=== PATIENT | male | born 1985 | race Caucasian/White ===

== ENCOUNTER 2021-05-09 14:18 | Emergency (ER) | payer BC, SELFPAY ==
[2021-05-09 14:23] VITALS: BP 171/155; PULSE 113; RESP 26; TEMP 36.8; O2SAT 98
[2021-05-09] MEDS: HYDROmorphone HCL INJ (*CRX) 1 MG/ML SYR 0.5 MG IV PUSH (14:44)
[2021-05-09] MEDS: SODIUM CHLORIDE 0.9% IV 1,000 ML 999 ML (14:44)
[2021-05-09] MEDS: ONDANSETRON INJ 4 MG/2 ML VIAL IV PUSH (14:45)
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
--- NOTE | 2021-05-09 15:02 | PC.NURSE ---
ice cold towels applied to upper and lower extremities per EDVictoria Lord. Dr. Lord called [facility] for transfer and towels removed per their request.
[2021-05-09] MEDS: TETANUS,DIPHTHERIA,AC PERTUSSIS ADULT (0.5 ML) BOOSTRIX IM (15:23)
[2021-05-09 15:30] VITALS: BP 147/97; PULSE 86; RESP 19; O2SAT 100
--- NOTE | 2021-05-09 15:34 | PC.NURSE ---
[facility] accepted transfer to [facility] on [address] ETA 10 min Trip # [id number] Per Dr Risa beyer & arnoldo
== END 2021-05-09 15:43 | disposition short-term general hospital (02) ==
PROVIDERS: Emergency Provider Emergency Medicine; PCP Family Medicine
DX: T24.201A Burn of second degree of unspecified site of right lower limb, except ankle and foot, initial encounter (principal); T24.202A Burn of second degree of unspecified site of left lower limb, except ankle and foot, initial encounter; T20.19XA Burn of first degree of multiple sites of head, face, and neck, initial encounter; T22.012A Burn of unspecified degree of left forearm, initial encounter; T22.011A Burn of unspecified degree of right forearm, initial encounter; T31.11 Burns involving 10-19% of body surface with 10-19% third degree burns; Z23 Encounter for immunization; X08.8XXA Exposure to other specified smoke, fire and flames, initial encounter
CPT/HCPCS: 90471; 90715; 96374; 96375; 99285; J1170; J2405; J7030

== ENCOUNTER 2023-01-18 13:20 | Emergency (ER) | payer BC, SELFPAY ==
--- NOTE | 2023-01-18 13:31 | ED.URI ---
HPI - URI/Sore Throat General Chief Complaint: Upper Respiratory Infection Stated Complaint: nasal drainage/congestion Time Seen by Provider: 01/18/23 13:31 Source: patient Mode of arrival: ambulatory Limitations: no limitations History of Present Illness HPI Narrative: Mr. Elaine is a 37-year-old male patient presenting to the clinic today with complaints of nasal drainage and congestion for over 1 week. He reports he has been blowing his nose and having greenish brown nasal drainage with blood. States he has a pressure to the with of his mouth with sinus congestion also reporting some postnasal drip. States he has had a low-grade fever as well as developed over the last 2 days. MD elicited complaint: rhinorrhea and nasal congestion Related Data Home Medications Medication Instructions Recorded Confirmed hydrocodone 10 mg-acetaminophen 1 tablet PO Q8H PRN 07/25/21 10/31/22 325 mg tablet Allergies Allergy/AdvReac Type Severity Reaction Status Date / Time No Known Allergies Allergy Mild Verified 01/18/23 13:47 Review of Systems Review of Systems: Pertinent positives per HPI. Patient denies any fever, chills, rash, headache, visual changes, dizziness, cough, shortness of breath, chest pain, palpitations, nausea, vomiting, diarrhea, constipation, abdominal pain, or any urinary issues. [facility] Past Medical History Medical History ADHD BMI 30.0-30.9,adult BMI 31.0-31.9,adult BMI 32.0-32.9,adult Chronic low back pain with left-sided sciatica COVID-19 (~2020) GERD (gastroesophageal reflux disease) HTN (hypertension) Hypogonadism in male Total testosterone 118 with free testosterone 23.4 on 09/17/2022. Long-term current use of testosterone replacement therapy Lumbago Microscopic hematuria (09/17/22) trace blood on urinalysis 09/17/2022. Mixed hyperlipidemia (09/17/22) total cholesterol 254, triglycerides 204, HDL 31, LDL 185 with ratio of 8.2 on 09/17/2022. Obesity (BMI 30.0-34.9) Seasonal allergic rhinitis Tobacco abuse Wellness examination Surgical History Surgical History Hx of appendectomy Hx of tonsillectomy Family History Family History Mother Heart disease Hypertension Acute myocardial infarction Social History Social History Smoking packs per day: 1 Smoking cigarettes per day: 20.0 Years smoked: 20 Smoking pack-years: 20.00 Smoking status: Current every day smoker Tobacco type: cigarettes Alcohol intake: current Alcohol use details: Rarely Substance use: never Substance use type: does not use Lack of Transportation: No Lack of Food: Never True Current Housing: I Have Housing Concerned About Future Housing: No Difficulty Paying Gas/Electric Bills: No Difficulty Paying for Meds: No Education: Trade/Vocational Certificate Difficulty w/ Childcare or Family Care: No Comments At the time of my signature, I reviewed and agree with the nursing past medical, surgical, social, and family history. There is no relevant family history pertinent to the patient complaint. Exam Narrative: General: Well-developed, well nourished, in no apparent distress Head: Normocephalic, atraumatic Eyes: Pupils equally round and reactive to light bilaterally, EOM intact, sclera and conjunctive clear, no discharge, lids normal Ears: TMs intact and clear, ear canals clear, no drainage, grossly hearing normal. Nose: Nares patent, green nasal discharge, moderate to severe inflammation, maxillary and frontal sinus tenderness. Mouth: Oral pharynx without lesions or masses, good dentition, MMM. Postnasal drip Neck: Supple, trachea midline, no enlargement of anterior or posterior cervical nodes, no thyroid masses or goiter palpable. Car
[2023-01-18 13:45] VITALS: BP 131/78; PULSE 93; RESP 18; TEMP 36.1; O2SAT 100
== END 2023-01-18 13:50 | disposition home or self-care (01) ==
PROVIDERS: Emergency Provider Nurse Practitioner Family; PCP Family Medicine
DX: J01.90 Acute sinusitis, unspecified (principal); F17.210 Nicotine dependence, cigarettes, uncomplicated; K21.9 Gastro-esophageal reflux disease without esophagitis; I10 Essential (primary) hypertension; E78.2 Mixed hyperlipidemia; E66.9 Obesity, unspecified; Z68.32 Body mass index [BMI] 32.0-32.9, adult; F90.9 Attention-deficit hyperactivity disorder, unspecified type
CPT/HCPCS: 99213; G0463

== ENCOUNTER 2025-03-06 15:34 | Emergency (ER) | payer BC, SELFPAY ==
--- NOTE | ~2025-03-06 | XR_ITS ---
EXAM: XR hand RT min 3V DATE: 03/06/2025 15:56 HISTORY: Right hand injury/pain at 4th and 5th MCP joint . COMPARISON: None available. FINDINGS: Normal mineralization. Oblique fracture of the distal aspect of the fifth metacarpal, with 2 mm posterior displacement and 41 degrees anterior angulation. No lytic or blastic lesion. Joint sp aces are maintained. No erosion or periosteal change. Soft tissue swelling over the fracture site. IMPRESSION: Oblique, mildly displaced and moderately angulated distal right fifth metacarpal fracture (boxer's type fracture). Reviewed, dictated and finalized at location K. IMPRESSION: Oblique, mildly displaced and moderately angulated distal right fif th metacarpal fracture (boxer's type fracture).
[2025-03-06 15:43] VITALS: BP 145/93; PULSE 86; RESP 18; TEMP 36.9; O2SAT 99
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
--- OUTSIDE RECORDS SUMMARY | 2025-03-06 17:27 | XMS_ITS | Continuity of Care Document ---
Author Organization [facility] Address [address] [place] [address] Phone Care Team Providers Care Security Systems Manager Name Role Phone Matthieu Gomez MD Unavailable Unavailable Allergies, Adverse Reactions, Alerts Substance Reaction Status Criticality No Known Allergies Active No Inform ation Medications Medication Instructions Dosage Effective Dates (start - stop) Status Comments Naprosyn 500 mg tablet take 1 tablet by oral route 2 times every day with food 500 MG - Active LEVOTHYROXINE SODIUM (unknown strength) Not Available - Active HYDROCODONE-ACETAMIN OPHEN (unknown strength) Not Available - Active Procedures Procedure Date RADEX SPI LUMBOSAC 2/3 VIEWS OFFICE/OUTPATIENT VISIT NEW Advance Directives Directive Yes / No Effective Date File Name No Information Encounters Encounter Description Practice Location Reason(s) For Visit Diagnoses Date Provider Providers Copied on Encounter [facility] , [address] [facility] [address], [address], [place] tel:[phone] [facility] No Information 6 Patricia Sommers. [address] [place], [place], [id number] . tel: [phone] OFFICE/OUTPAT IENT VISIT NEW [facility] , [address] [facility] [address], [address], [place] tel:[phone] [facility] My back hurts alot (chief complaint) Body mass index (BMI) 30.0-30.9, adultPersonal history of nicotine dependenceLow back pain 6 Patricia Sommers. [address] [place], [place], [id number] . tel: [phone] Referring Provider: Gustavo Juarez V, [address], [place], [address]. tel:[phone] Family History Family Member Type Diagnosis Age At Onset Mother Problem (finding) coronary arterioscleros is Sister Problem (finding) cancer Mother Problem (finding) hypertension Payers Payer name Insurance type Covered constitution party ID Authoriza tion(s) No Information Social History Type Description Quantity Date Captured Comments Alcohol Use Details Unknown Caffeine Use Details Unknown Tobacco Use Status Smoking Status No Information Sex Male Chief Complaint And Reason For Visit No Information Reason For Referral Reason For Referral No Information Plan Of Treatment Date Type Action Status Goal Tobacco cessation counseling completed Referral Ordered: RADEX SPI LUMBOSAC 2/3 VIEWS ordered History Of Present Illness Encounter Date Complaint History Of Prese nt Illness My back hurts alot Functional Status Date Functional Assessmen t No Information Instructions Date Instruction Additional Infor mation At this time, I feel the patient would benefit from a course of non-operative management. I will start the patient on Naprosyn 500mg p.o. b.i.d. for the next three weeks. I will also start the patient in physical therapy to work on range of motion and strengthening of the lumbar spine and modalities as seen fit by the physical therapist. I discussed with the patient the importance of continuing home therapy once formal therapy has ended. I would like to see the patient again in six weeks. All the patient's questions were answered. Related to Low back pain Dietary needs education Related to Body mass index (BMI) 30.0-30.9, adult Take medication as directed. Rel ated to Low back pain Continue home exercise program. Related to Low back pain Assessments Type Assessment Date No Information Patient Care Teams Name Effective Dates (start - stop) Status Members No Information
--- OUTSIDE RECORDS SUMMARY | 2025-03-06 17:27 | XMS_ITS | Clinical Summary ---
Author Organization [facility] Address [facility] [place] [address] Care Team Providers Care Architect Naval Name Role Phone Unavailable Primary Care Provider Unavailabl e Allergies No known active allergies Social History Tobacco Use Types Packs/Day Years Used Date Smoking Tobacco: Every Day Cigarettes Smokeless Tobacco: Never Sex and Gender Information Value Date Recorded Sex Assigned at Not on file Legal Sex Male 4:29 PM DIE CUTTER DIAMOND Gender Identity Not on file Sexual Orientation Not on file Last Filed Vital Signs Vital Sign Reading Time Taken Comments Blood Pressure 122/80 12/10/2017 8:30 AM DIE CUTTER DIAMOND Pulse 72 12/10/2017 8:30 AM DIE CUTTER DIAMOND Temperature 37.3 C (99.1 F) 10/19/2017 4:41 PM DIE CUTTER DIAMOND Respiratory Rate 18 10/19/2017 4:41 PM DIE CUTTER DIAMOND Oxygen Saturation 96% 10/19/2017 5:48 PM DIE CUTTER DIAMOND Inhaled Oxygen Concentration - - Weight 109.1 kg (240 lb 8 oz) 12/10/2017 8:30 AM DIE CUTTER DIAMOND Height 188 cm (6' 2 ) 12/10/2017 8:30 AM DIE CUTTER DIAMOND Body Mass Index 30.88 12/10/2017 8:30 AM DIE CUTTER DIAMOND Plan of Treatment Health Maintenance Due Date Last Done Comments Annual Physical 1986 Hepatitis C 2001 DTaP, Tdap and Td Vaccines ( 1 - Tdap) 2002 Hepatitis B Vaccines (1 of 3 - 19+ 3-dose series) 2002 COVID-19 Vaccine (2023-2 5 season) 2024 HPV Vaccines Aged Out No longer eligi ble based on patient's age to complete this topic Meningococcal B Vaccine Aged Out No l onger eligible based on patient's age to complete this topic Meningococcal Vaccine Aged Out No darcy tony eligible based on patient's age to complete this topic Pneumococcal Vaccine: Pediat rics (0 to 5 Years) and At-Risk Patients (6 to 49 Years) Aged Out No longer eligible b ased on patient's age to complete this topic RSV Immunizations Under 20 Months Aged Out No longer eligible based on patient's age to complete this topic Insurance
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
--- OUTSIDE RECORDS SUMMARY | 2025-03-06 17:29 | XMS_ITS | Continuity of Care Document ---
Author Organization [facility] Address [address] [place] [address] Phone Care Team Providers Care Innersole Maker Name Role Phone Matthieu Gomez MD Unavailable [...] Providers Copied on Encounter [facility] , [address] [facility] [address], [address], [place] tel:[phone] [facility] No Information 6 Patricia Sommers. [address] [place], [place], [id number] . tel: [phone] OFFICE/OUTPAT IENT VISIT NEW [facility] , [address] [facility] [address], [address], [place] tel:[phone] [facility] My back hurts alot (chief complaint) Body mass index (BMI) 30.0-30.9, adultPersonal history of nicotine dependenceLow back pain 6 Patricia Sommers. [address] [place], [place], [id number] . tel: [phone] Referring Provider: Gustavo Juarez V, [address], [place], [address]. tel:[phone] Family History Family Member Type Diagnosis Age At Onset Mother Problem (finding) coronary arterioscleros is Sister Problem (finding) cancer Mother Problem (finding) hypertension Payers Payer name Insurance type Covered alliance party ID Authoriza tion(s) No Information Social [...]
== END 2025-03-06 16:36 | disposition home or self-care (01) ==
PROVIDERS: Emergency Provider Nurse Practitioner; PCP Nurse Practitioner Family
DX: S62.336A Displaced fracture of neck of fifth metacarpal bone, right hand, initial encounter for closed fracture (principal); W19.XXXA Unspecified fall, initial encounter; Y93.83 Activity, rough housing and horseplay; I10 Essential (primary) hypertension; K21.9 Gastro-esophageal reflux disease without esophagitis; E66.9 Obesity, unspecified; Z68.32 Body mass index [BMI] 32.0-32.9, adult; E78.2 Mixed hyperlipidemia; R73.03 Prediabetes; Z86.16 Personal history of COVID-19; F17.210 Nicotine dependence, cigarettes, uncomplicated
CPT/HCPCS: 29125; 73130; 99214; A4565; G0463

== ENCOUNTER 2025-06-22 15:03 | Outpatient (CLI) | payer BC, OTHER, SELFPAY ==
--- OUTSIDE RECORDS SUMMARY | 2025-06-22 15:06 | XMS_ITS | Clinical Summary ---
Author Organization [facility] Address [address] [place] [address] Care Team Providers Care Radiator Repairer Name Role Phone Fernanda Cruz MD Primary Care Provider [phone] Allergies No known active allergies Medications HYDROcodone-aceta minophen ([place]) 10-325 mg Tablet 1 tab(s) Act reno [...] DAILY 90 Tablet 3 11/21/2022 4:51 PM [employer] INS[employer]OR 2 Active HYDROcodone-aceta minophen (NORCO) 10-325 mg Tablet Take 1 Tablet by mouth every 6 hours. 120 Tablet 09/30/2023 5:02 PM [employer]OR 3 Active HYDROcodone-aceta minophen (NORCO) 10-325 mg Tablet Take 1 Tablet by mouth every 6 hours. 120 Tablet 11/01/2023 3:17 PM [employer] INS[employer]OR 3 Active pantoprazole (PROTONIX) 40 mg Tablet, [...] Active Active Problems No known active problems Social History Tobacco Use Types Packs/Day Years [...] 10:48 AM CDT Height 188 cm (6' 2) 05/14/2021 10:48 AM CDT Body Mass Index 30.17 05/14/2021 10:48 AM CDT Plan of Treatment Health Maintenance Due Date Last Done Comments HPV VACCINES (1 - Male 3-dose series) 1998 HEPATITIS B VACCINES (1 of 3 - 19+ 3-dose series) 04/17 DTAP/TDAP/TD VACCINES (1 - Tdap) 02/16/2008 02/15/20 08 INFLUENZA VACCINE (#1) 2025 Insurance RX [employer] (INTERNAL) [facility] Commercial Care Teams Radiator Repairer Relationship Specialty Start Date End Date Fernanda Cruz MD PCP - General Family Practice 12/10/20
--- OUTSIDE RECORDS SUMMARY | 2025-06-22 15:06 | XMS_ITS | Clinical Summary ---
Author Organization [facility] Address [facility] [place] [address] Care Team Providers Care Medical Surgical Tech Name Role Phone Unavailable Primary Care Provider Unavailabl e Allergies No known active allergies Social History Tobacco Use Types Packs/Day Years Used Date Smoking Tobacco: Every Day Cigarettes Smokeless Tobacco: Never Sex and Gender Information Value Date Recorded Sex Assigned at Not on file Legal Sex Male 4:29 PM [employer] Gender Identity Not on file Sexual Orientation Not on file Last Filed Vital Signs Vital Sign Reading Time Taken Comments Blood Pressure 122/80 12/10/2017 8:30 AM [employer] Pulse 72 12/10/2017 8:30 AM [employer] Temperature 37.3 C (99.1 F) 10/19/2017 4:41 PM [employer] Respiratory Rate 18 10/19/2017 4:41 PM [employer] Oxygen Saturation 96% 10/19/2017 5:48 PM [employer] Inhaled Oxygen Concentration - - Weight 109.1 kg (240 lb 8 oz) 12/10/2017 8:30 AM [employer] Height 188 cm (6' 2) 12/10/2017 8:30 AM [employer] Body Mass Index 30.88 12/10/2017 8:30 AM [employer] Plan of Treatment Health Maintenance Due Date Last Done Comments Annual Physical 1986 Hepatitis C 2001 DTaP, Tdap and Td Vaccines ( 1 - Tdap) 2002 Hepatitis B Vaccines (1 of 3 - 19+ 3-dose series) 2002 HPV Vaccines (1 - 3-dose SCD M series) 2010 COVID-19 Vaccine (2023-2 5 season) 2024 Meningococcal B Vaccine Aged Out No l [...]
[2025-06-22 15:29] LABS: Hematocrit 40.9 % (42.0-52.0); Hemoglobin 13.8 g/dL (14.0-18.0); Immature Granulocyte Percent A 0.4 % (0-0.5); Lymphocytes Absolute Auto 2.11 K/mm3 (0.9-3.2); Mean Corpuscular HGB Conc 33.7 g/dl (32-36); Mean Corpuscular Hemoglobin 30.9 pg (26-34); Mean Corpuscular Volume 91.5 fl (80-100); Nucleated Red Blood Cells Absolute Auto 0.000 K/mm3 (0.0-0.012); Nucleated Red Blood Cells Perc 0.0 % (0.0-0.2); Platelet Count Result 254 k/mm3 (150-375); Red Blood Count 4.47 M/mm3 (4.6-6.20); White Blood Count 7.8 K/mm3 (4.5-10.0)
[2025-06-22 15:50] LABS: Alanine Aminotransferase 38 U/L (6-50); Albumin Level 4.6 g/dL (3.5-5.1); Alkaline Phosphatase 62 U/L (38-126); Anion Gap 8 mmol/L (4-12); Aspartate Amino Transferase 41 U/L (17-59); Bilirubin,Total 0.3 mg/dL (0.2-1.3); Blood Urea Nitrogen 16 mg/dL (9-20); Calcium 9.2 mg/dL (8.4-10.2); Carbon Dioxide 26 mmol/L (22-30); Chloride 105 mmol/L (98-107); Cholesterol 202 mg/dL (0-200); Estimated Glomerular Filt Rate > 60; Glucose 101 mg/dL (65-110); HDL Direct 38 mg/dL; Sodium 139 mmol/L (137-145); Total Protein 7.3 g/dL (6.3-8.2); Triglycerides 193 mg/dL (<150)
[2025-06-22 15:51] LABS: Add Urine Microscopic? YES; Appearance Urine Cloudy (Clear); Glucose Urine UA Negative (Negative); Leukocyte Esterase Ur Negative LEU/UL (Negative); Nitrate Urine Negative (Negative); Non Pathogenic Casts 0-2; Specific Grav Ur 1.029 (1.001-1.035)
[2025-06-22 15:59] LABS: Potassium 4.2 mmol/L (3.4-5.0)
[2025-06-22 16:19] LABS: Thyroid Stimulating Hormone Reflex 2.130 uIU/mL (0.465-4.68)
[2025-06-22 16:26] LABS: Prostate Specific Antigen 0.5 ng/mL (< OR = 4.0)
[2025-06-22 17:49] LABS: Hemoglobin A1C 5.5 % (<5.7)
[2025-06-29 18:08] LABS: Free Testosterone (Direct) 2.7 pg/mL (6.8-21.5)
== END 2025-06-22 15:04 | disposition home or self-care (01) ==
LOC: ANHLAB 15:04
PROVIDERS: PCP Nurse Practitioner Family; Visit Provider Nurse Practitioner Family
DX: E78.2 Mixed hyperlipidemia (principal); Z13.29 Encounter for screening for other suspected endocrine disorder; I10 Essential (primary) hypertension; Z12.5 Encounter for screening for malignant neoplasm of prostate; R73.03 Prediabetes
CPT/HCPCS: 36415; 80053; 80061; 81001; 83036; 84153; 84402; 84403; 84443; 85025; G0103